=== PATIENT | female | born 1980 | race Two or more races ===

== ENCOUNTER 2021-03-16 19:37 | Emergency (ER) | payer OTHER ==
[~2021-03-16] VITALS: Ht 170.2 cm; Wt 65.8 kg
--- NOTE | 2021-03-16 19:50 | NUR ---
BIBS FOR C/O SOB X 5 DAYS . - COUGH. REC'D J&J VACCINE ON 02/11/21. - FEVER. PT AMBULATORY TO BED 2, PLACED ON A MONITOR, WILL CONT TO MONITOR
[2021-03-16] MEDS ORDERED: ALBUTEROL FS 2.5 MG/3 ML VIAL.NEB ONE (19:59)
[2021-03-16] MEDS ORDERED: IPRATROPIUM NEB FS 0.5 MG/2.5 ML AMPUL.NEB ONE (19:59)
[2021-03-16] MEDS ORDERED: predniSONE 20 MG TABLET PO ONE (20:00)
[2021-03-16] MEDS ORDERED: IPRATROPIUM NEB FS 0.5 MG/2.5 ML AMPUL.NEB NEB ONE (20:00)
[2021-03-16] MEDS ORDERED: ALBUTEROL FS 2.5 MG/3 ML VIAL.NEB NEB ONE (20:00)
--- NOTE | 2021-03-16 20:00 | NUR ---
RAD AT BED SIDE
[2021-03-16] MEDS ORDERED: predniSONE 20 MG TABLET ONE (20:09)
[2021-03-16 20:17] LABS: BASOPHILS % (AUTO) 0.6 % (0.0-2.0); EOSINOPHILS % (AUTO) 15.2 % (0.0-6.0); HEMATOCRIT 48 % (33-45); LYMPHOCYTES # (AUTO) 1.8 /CMM (0.8-4.8); LYMPHOCYTES % (AUTO) 25.7 % (20.0-44.0); MEAN CORPUSCULAR HGB CONC 33 g/dl (31.0-36.0); MEAN CORPUSCULAR VOLUME 88 fL (82-100); MONOCYTES # (AUTO) 0.4 /CMM (0.1-1.30); MONOCYTES % (AUTO) 5.8 % (2.0-12.0); NEUTROPHILS # (AUTO) 3.8 /CMM (1.8-8.9); NEUTROPHILS % (AUTO) 52.7 % (43.0-81.0); PLATELET COUNT (AUTO) 211 /CMM (150-450); RED BLOOD CELL COUNT(AUTO) 5.49 MIL/uL (4.0-5.2); WHITE BLOOD COUNT (AUTO) 7.1 K/uL (4.3-11.0)
[2021-03-16 20:30] LABS: CALCIUM, SERUM 9.7 mg/dL (8.5-10.1); CREATININE 0.8 mg/dL (0.6-1.3); POTASSIUM 3.5 mmol/L (3.5-5.1)
--- NOTE | 2021-03-16 20:36 | NUR ---
LAURY AT THE BED SIDE TTO RE EVALUATE THE PT POST BREATHING TX
[2021-03-16] MEDS ORDERED: IOHEXOL-350 100 ML VIAL IV ONE (21:17)
[2021-03-16] MEDS ORDERED: IV NS 0.9% 250 ML IV ONE (21:17)
[2021-03-16] MEDS ORDERED: CT SWABBABLE VALVE TRANS SET 1 EA INFUS.SET MC ONE (21:17)
--- NOTE | 2021-03-16 21:34 | NUR ---
BACK FROM CT
--- NOTE | 2021-03-16 22:19 | NUR ---
ALONSO ROBERTS AT BED SIDE
[2021-03-16] MEDS ORDERED: AZIT250T PO (22:28)
[2021-03-16] MEDS ORDERED: PRED20TA PO (22:28)
[2021-03-16] MEDS ORDERED: ALBU18HF2 INH (22:28)
[2021-03-16 22:45] VITALS: BP 77/127
--- NOTE | 2021-03-16 22:45 | NUR ---
PT is medically stable for d/c per MD. IV removed. Catheter intact and site benign. Pressure and 4x4 applied to site. No bleeding noted.Patient discharged to home in stable condition. Rx and Written and verbal after care instructions given. Patient verbalizes understanding of instruction.
== END 2021-03-16 22:46 | disposition home or self-care (01) ==
LOC: ER 19:41
DX: J20.9 Acute bronchitis, unspecified (principal); E86.0 Dehydration; R79.1 Abnormal coagulation profile; Z20.822 Contact with and (suspected) exposure to COVID-19; J98.11 Atelectasis
CPT/HCPCS: 36415; 71045; 71275; 80048; 84484; 84703; 85025; 85378; 87426; 93005; 94640 ×2; 99285; C9803; J7050; J7512; Q9967

== ENCOUNTER 2021-04-13 17:24 | Inpatient (IN) | payer OTHER ==
[~2021-04-13] VITALS: Ht 170.2 cm; Wt 69.9 kg
[~2021-04-13 17:24] MED LIST: ALBU18HF2 INH; AZIT250T PO; PRED20TA PO
--- NOTE | 2021-04-13 17:35 | NUR ---
The patient bibs for c/o sob x 3 days, 94% on room air. Episodes of dyspnea no exertion noted. Respiration regulara nd unlabored at this time. The patient states having non-productive cough. Denies pain. Attached to the monitor. Warm blanket provided for comfort. Will continue to monitor the patient.
--- NOTE | 2021-04-13 17:45 | NUR ---
89% in room air. the patient is placed on oxygen at 2l/min via nasal cannula and oxygen saturation improved to 95%. Dr Polanco made aware.
[2021-04-13] MEDS ORDERED: ALBUTEROL FS 2.5 MG/3 ML VIAL.NEB NEB ONE ×2 (18:00→20:30)
[2021-04-13] MEDS ORDERED: IPRATROPIUM NEB FS 0.5 MG/2.5 ML AMPUL.NEB NEB ONE ×2 (18:00→20:30)
[2021-04-13] MEDS ORDERED: methylPREDNISolone SOD SUCC 125 MG/2ML VIAL IV ONE (18:00)
[2021-04-13] MEDS ORDERED: methylPREDNISolone SOD SUCC 125 MG/2ML VIAL ONE (18:12)
[2021-04-13] MEDS ORDERED: IPRATROPIUM NEB FS 0.5 MG/2.5 ML AMPUL.NEB ONE ×2 (18:16→20:55)
[2021-04-13] MEDS ORDERED: ALBUTEROL FS 2.5 MG/3 ML VIAL.NEB ONE ×2 (18:16→20:54)
[2021-04-13] MEDS ORDERED: ALBU18HF2 IH (18:37)
[2021-04-13] MEDS ORDERED: BUPR1FIL3 SL (18:37)
--- NOTE | 2021-04-13 19:05 | NUR ---
Rec'd report from NEGRA Buckley for yahaira
--- NOTE | 2021-04-13 19:11 | NUR ---
covid swab done and sent to the lab
--- NOTE | 2021-04-13 19:21 | NUR ---
us at bedside
--- NOTE | 2021-04-13 19:32 | NUR ---
verbal order of 0.5mg ativan po
[2021-04-13 19:34] LABS: CALCIUM, SERUM 9.8 mg/dL (8.5-10.1); CARBON DIOXIDE 29 mmol/L (21-32); CHLORIDE 100 mmol/L (98-107); CREATININE 0.9 mg/dL (0.6-1.3); GLUCOSE 82 mg/dL (74-106); POTASSIUM 4.3 mmol/L (3.5-5.1); SODIUM SERUM 137 mmol/L (136-145); UREA NITROGEN, BLOOD 12 mg/dL (7-18)
[2021-04-13] MEDS ORDERED: LORAZEPAM 0.5 MG TABLET ONE (19:34)
[2021-04-13 19:46] LABS: BASOPHILS % (AUTO) 0.3 % (0.0-2.0); EOSINOPHILS % (AUTO) 4.2 % (0.0-6.0); HEMATOCRIT 48 % (33-45); LYMPHOCYTES # (AUTO) 0.9 /CMM (0.8-4.8); LYMPHOCYTES % (AUTO) 9.8 % (20.0-44.0); MEAN CORPUSCULAR HGB CONC 33 g/dl (31.0-36.0); MEAN CORPUSCULAR VOLUME 88 fL (82-100); MONOCYTES # (AUTO) 0.5 /CMM (0.1-1.30); MONOCYTES % (AUTO) 5.4 % (2.0-12.0); NEUTROPHILS # (AUTO) 7.4 /CMM (1.8-8.9); NEUTROPHILS % (AUTO) 80.3 % (43.0-81.0); PLATELET COUNT (AUTO) 268 /CMM (150-450); RED BLOOD CELL COUNT(AUTO) 5.48 MIL/uL (4.0-5.2); WHITE BLOOD COUNT (AUTO) 9.3 K/uL (4.3-11.0)
[2021-04-13 19:51] LABS: ALANINE AMINOTRANSFERASE 23 U/L (12-78); ALBUMIN 4.1 g/dL (3.4-5.0); ALKALINE PHOSPHATASE 106 U/L (46-116); ASPARTATE AMINOTRANSFERASE 26 U/L (15-37); BILIRUBIN,DIRECT 0.2 mg/dL (0.0-0.2); BILIRUBIN,TOTAL 0.6 mg/dL (0.2-1.0); NT-PRO BNP 203 pg/mL (0-125); TOTAL PROTEIN, SERUM 8.5 g/dL (6.4-8.2)
[2021-04-13] MEDS ORDERED: LORAZEPAM 0.5 MG TABLET PO ONE (20:00)
--- NOTE | 2021-04-13 20:21 | NUR ---
NURSING SUP CALLED FOR BED, 312-4
--- NOTE | 2021-04-13 20:23 | NUR ---
PANEL PAGED PER MD REQUEST
--- NOTE | 2021-04-13 20:25 | NUR ---
DR. KELLY SPEAKING WITH PRISCILLA NEWELL DNP REGARDING ADMISSION
--- NOTE | 2021-04-13 20:49 | NUR ---
callled rt for breathing tx
--- NOTE | 2021-04-13 20:57 | NUR ---
rt at bedside
--- NOTE | 2021-04-13 21:01 | NUR ---
Gave report to NEGRA Felix for yahaira
[2021-04-13 21:25] VITALS: BP 122/68
[2021-04-13 21:30] VITALS: BP 122/68
--- NOTE | 2021-04-13 21:30 | NUR ---
TELE/RN ADMITTING NOTE RECEIVED REPORT FROM REINFORCING STEEL WORKER WIRE MESH KRUPA. PATIENT ARRIVED TO UNIT VIA GURNEY AND 2 STAFF MEMBERS. PATIENT PLACED IN ROOM 312-1. PATIENT IS ALERT AND ORIENTED X 4. ABLE TO MAKE NEEDS KNOWN. NO COMPLAINTS OF PAIN AT THIS TIME. IV ACCESS TO LEFT AC #20G INTACT, PATENT AND SALINE LOCKED. PATIENT IS ON TELE MONITOR WITH READING OF SR 78. NO S/SX OF SOB OR RESPIRATORY DISTRESS NOTED. CONTINUES ON 3L O2 VIA NC WITH O2 SATS 96%. PATIENT IS AMBULATORY WITH STEADY GAIT. NO SKIN ISSUES ON ADMISSION. LUNG SOUNDS WITH SOME WHEEZING NOTED. PATIENT IS ON REGULAR DIET AND PROVIDED SANDWICH AND SNACKS. ALL NEEDS ATTENDED TO. CALL LIGHT WITHIN REACH. PATIENT ORIENTED TO ROOM, CALL LIGHT AND UNIT. ASPIRATION, FALL AND SAFETY PRECAUTIONS MAINTAINED. WILL CONTINUE TO MONITOR.
[2021-04-13] MEDS ORDERED: Z GUARD REMEDY 2 OZ OINT TP PRN (22:30)
[2021-04-13] MEDS ORDERED: ONDANSETRON HCL/PF 4 MG/2 ML VIAL IVP PRN (22:30)
[2021-04-13] MEDS ORDERED: ACETAMINOPHEN 325 MG TABLET PO PRN (22:30)
[2021-04-13] MEDS: IV NS 0.9% 1,000 ML IV PRN (22:53)
[2021-04-13] MEDS: ZOLPIDEM TARTRATE 5 MG TABLET PO PRN (22:54)
[2021-04-13] MEDS: ENOXAPARIN SODIUM 40 MG/0.4 ML DISP.SYRIN SQ SCH (22:56)
[2021-04-13] MEDS: ALBUTEROL FS 2.5 MG/3 ML VIAL.NEB NEB SCH (23:31)
[2021-04-13] MEDS: IPRATROPIUM NEB FS 0.5 MG/2.5 ML AMPUL.NEB NEB SCH (23:31)
[2021-04-14] VITALS: BP 115/69
[2021-04-14 04:00] VITALS: BP 116/69
[2021-04-14] MEDS: ALBUTEROL FS 2.5 MG/3 ML VIAL.NEB NEB SCH ×6 (04:06→23:30)
[2021-04-14] MEDS: IPRATROPIUM NEB FS 0.5 MG/2.5 ML AMPUL.NEB NEB SCH ×6 (04:06→23:30)
[2021-04-14] MEDS: methylPREDNISolone SOD SUCC 40 MG/ML VIAL IV SCH ×3 (04:25→21:50)
--- NOTE | 2021-04-14 06:40 | NUR ---
TELE/RN CLOSING NOTE PATIENT CURRENTLY RESTING IN BED. AWAKE, ALERT AND ORIENTED X 4. ABLE TO MAKE NEEDS KNOWN. NO COMPLAINTS OF PAIN AT THIS TIME. CONTINUES ON 3L O2 VIA NC WITH NO S/SX OF RESPIRATORY DISTRESS NOTED. O2 SATS BETWEEN 96-98%. CONTINUES ON IVF NS @ 75ML/HR. TELE MONITOR READING SR 75. CALL LIGHT WITHIN REACH. ASPIRATION, FALL AND SAFETY PRECAUTIONS MAINTAINED. WILL ENDORSE PLAN OF CARE TO ONCOMING SHIFT.
[2021-04-14 06:54] LABS: BASOPHILS % (AUTO) 0.1 % (0.0-2.0); HEMATOCRIT 46 % (33-45); HEMOGLOBIN 15.1 g/dL (11.5-14.8); LYMPHOCYTES # (AUTO) 0.4 /CMM (0.8-4.8); LYMPHOCYTES % (AUTO) 7.1 % (20.0-44.0); MEAN CORPUSCULAR HGB CONC 33 g/dl (31.0-36.0); MEAN CORPUSCULAR VOLUME 88 fL (82-100); MONOCYTES # (AUTO) 0.1 /CMM (0.1-1.30); NEUTROPHILS # (AUTO) 5.5 /CMM (1.8-8.9); NEUTROPHILS % (AUTO) 90.8 % (43.0-81.0); PLATELET COUNT (AUTO) 231 /CMM (150-450); WHITE BLOOD COUNT (AUTO) 6.1 K/uL (4.3-11.0)
[2021-04-14 07:37] LABS: ALBUMIN 3.5 g/dL (3.4-5.0); BILIRUBIN,TOTAL 0.5 mg/dL (0.2-1.0); CALCIUM, SERUM 9.3 mg/dL (8.5-10.1); CREATININE 0.7 mg/dL (0.6-1.3); PHOSPHORUS 3.2 mg/dL (2.5-4.9); POTASSIUM 4.6 mmol/L (3.5-5.1); TOTAL PROTEIN, SERUM 7.8 g/dL (6.4-8.2)
[2021-04-14 08:00] VITALS: BP 116/82
[2021-04-14] MEDS: PANTOPRAZOLE 40 MG TABLET.DR PO SCH (08:00)
--- NOTE | 2021-04-14 08:00 | NUR ---
MACHINE GROUP LEADER OPENING NOTES RECEIVED PATIENT AWAKE AND RESTING IN BED, PT SHOWS NO SIGNS OF SOB PATIENT IS STABLE ON NC 3 LPM PATIENT IS SINUS RHYTMN 76 RIGHT FOREARM . LAC G#20 NS @ 75 ML/HR. SAFETY MEASURES IN PLACE, CALL LIGHT AND TABLE WITHIN REACH, SIDE RAILS UP X 2, HOB ELEVATED, BED ALARM ON. WILL CONTINUE TO MONITOR. WILL CONTINUE
[2021-04-14 08:03] LABS: THYROID STIMULATING HORMONE 0.454 uIU/mL (0.358-3.74)
[2021-04-14 11:59] VITALS: BP 101/67
[2021-04-14] MEDS ORDERED: LORAZEPAM 0.5 MG TABLET PO ONE (12:30)
--- NOTE | 2021-04-14 15:55 | NUR ---
Absence Management Consultant note: public services librarian consult request received. SS will follow up at a later time.
[2021-04-14 16:00] VITALS: BP 110/74
--- NOTE | 2021-04-14 17:56 | NUR ---
ENVIRONMENTAL ENGINEERING INTERN CLOSING NOTES PT AWAKE IN BED AT THIS TIME. PT REMAINED STABLE THROUGHOUT SHIFT. PT KEPT CLEAN AND DRY.PT ENCOURAGED TO REPOSITION EVERY TWO HOURS. IV ACCESS LAC G#20 INTACT, PATENT AND FLUSHING WELL.SAFETY PRECAUTIONS IN PLACE AND MAINTAINED AT ALL TIMES. BED IN LOWEST LOCKED POSITION, HOB ELEVATED, SIDE RAILS UP X 2. CALL LIGHT AND TABLE WITHIN REACH. WILL ENDORSE TO ENTERPRISE RESOURCE ANALYST NURSE FOR MESFIN
--- NOTE | 2021-04-14 19:56 | NUR ---
MS/TELE/RN RECEIVED PATIENT IN ROOM LYING IN BED AWAKE, ALERT, ORIENTED, C/O COUGH AND SORE THROAT, OTHERWISE COMFORTABLE, NO SIGNS OF DISTRESS NOTED, CALL LIGHT IN REACH, WILL MONITOR.
[2021-04-14 20:00] VITALS: BP 113/67
--- NOTE | 2021-04-14 21:11 | NUR ---
MS/TELE/RN SENT MESSAGE TO DR. PRISCILLA NEWELL TO NOTIFY HIM OF PATIENT'S C/O WORSENING COUGH AND SORE THROAT, TO GET MEDICATION ORDER.
--- NOTE | 2021-04-14 21:17 | NUR ---
MS/TELE/RN RECEIVED ORDER OF CEPACOL FOR SORE THROAT, NO ORDER RECEIVED FOR COUGH. ORDER CARRIED OUT.
[2021-04-14] MEDS ORDERED: MENTHOL/CETYLPYRD (CEPACOL) 1 LOZ LOZENGE PO PRN (21:30)
[2021-04-14] MEDS: ENOXAPARIN SODIUM 40 MG/0.4 ML DISP.SYRIN SQ SCH (21:52)
[2021-04-14] MEDS: IV NS 0.9% 1,000 ML IV PRN (21:53)
--- NOTE | 2021-04-14 22:10 | NUR ---
MS/TELE/RN PER NURSE ATTENDING PSYCHIATRIST, OMAR CEPACOL IS NOT AVAILABLE IN THE NIGHT LOCKER. PATIENT MADE AWARE.
[2021-04-14] MEDS: ZOLPIDEM TARTRATE 5 MG TABLET PO PRN (22:14)
--- NOTE | 2021-04-14 23:16 | NUR ---
MS/TELE/RN PATIENT IS SLEEPING AT THIS TIME, APPEAR COMFORTABLE, BREATHING EVEN AND UNLABORED, CALL LIGHT IN REACH. WILL CONTINUE TO MONITOR.
[2021-04-15] VITALS: BP_SYST 53
--- NOTE | 2021-04-15 00:52 | NUR ---
MS/TELE/RN PER RT, PATIENT REFUSED THE BREATHING TREATMENT SCHEDULED AT 2330.
[2021-04-15] MEDS: ALBUTEROL FS 2.5 MG/3 ML VIAL.NEB NEB SCH ×4 (03:30→15:30)
[2021-04-15] MEDS: IPRATROPIUM NEB FS 0.5 MG/2.5 ML AMPUL.NEB NEB SCH ×4 (03:30→15:30)
[2021-04-15] MEDS: methylPREDNISolone SOD SUCC 40 MG/ML VIAL IV SCH ×2 (04:43→12:59)
--- NOTE | 2021-04-15 06:13 | NUR ---
MS/TELE/RN PATIENT IS AWAKE, COMFORTABLE, NO C/O PAIN, NO DISTRESS NOTED, NO CHANGE IN CLINICAL CONDITION, ALL NEEDS ATTENDED AT THIS TIME, WILL CONTINUE TO MONITOR.
[2021-04-15 06:44] LABS: HEMATOCRIT 47 % (33-45); HEMOGLOBIN 15.1 g/dL (11.5-14.8); LYMPHOCYTES # (AUTO) 0.6 /CMM (0.8-4.8); LYMPHOCYTES % (AUTO) 4.9 % (20.0-44.0); MEAN CORPUSCULAR HGB CONC 32 g/dl (31.0-36.0); MEAN CORPUSCULAR VOLUME 89 fL (82-100); MONOCYTES # (AUTO) 0.3 /CMM (0.1-1.30); MONOCYTES % (AUTO) 2.2 % (2.0-12.0); NEUTROPHILS # (AUTO) 11.2 /CMM (1.8-8.9); NEUTROPHILS % (AUTO) 92.9 % (43.0-81.0); PLATELET COUNT (AUTO) 253 /CMM (150-450); RED BLOOD CELL COUNT(AUTO) 5.25 MIL/uL (4.0-5.2)
--- NOTE | 2021-04-15 07:00 | NUR ---
MANAGEMENT TECH OPENING NOTES RECEIVED PT AWAKE IN BED AT THIS TIME. PT AOX4. ABLE TO VERBALIZE NEEDS. NO SOB NOTED, NO C//O OF PAIN AT THIS TIME, NO S/S OF ANY APPARENT DISTRESS NOTED.RESPIRATIONS EVEN AND UNLABORED, PT NOTED ON 2LPM OXYGEN VIA NC. IV ACCESS NOTED IN LAC G#20, INTACT PATENT AND FLUSHING WELL. ASPIRATION AND SAFETY PRECAUTIONS IN PLACE AND MAINTAINED AT ALL TIMES. BED IN LOWEST LOCKED POSITION, SIDE RAILS UPX2, TABLE AND CALL LIGHT WITHIN REACH. WILL CONTINUE TO MONITOR
[2021-04-15 07:06] LABS: CALCIUM, SERUM 8.8 mg/dL (8.5-10.1); CREATININE 0.8 mg/dL (0.6-1.3); MAGNESIUM 1.9 mg/dL (1.8-2.4); PHOSPHORUS 3.5 mg/dL (2.5-4.9); POTASSIUM 4.3 mmol/L (3.5-5.1)
[2021-04-15 08:00] VITALS: BP 113/71
[2021-04-15] MEDS: PANTOPRAZOLE 40 MG TABLET.DR PO SCH (08:23)
[2021-04-15 12:43] VITALS: BP 104/67
[2021-04-15] MEDS: IV NS 0.9% 1,000 ML IV PRN (13:00)
[2021-04-15] MEDS ORDERED: FLUT1BLS IH (13:49)
[2021-04-15] MEDS ORDERED: METH4TAB3 PO (13:49)
[2021-04-15 16:00] VITALS: BP 97/60
--- NOTE | 2021-04-15 16:47 | NUR ---
BANQUET DIRECTOR NOTED PT DISCHARGE HOME AT THIS TIME. PT MEDICALLY STABLE AND CLEARED FOR DISCHARGE BY DR LOPES. ALL DISCHARGE INSTRUCTIONS PROVIDED. PT VERBALIZED UNDERSTANDING. PT KEPT CLEAN AND DRY. ALL BELONGINGS ACCOUNTED FOR, SIGNED BY PT AND SEND WITH PT. IV ACCESS REMOVED, PRESSURE APPLIED, SECURED WITH GAUZE AND TAPE, NO S/O BLEEDING OR INFILTRATION NOTED. PT LEFT UNIT IN STABLE CONDITION, TRANSPORTED BY WHEELCHAIR TO [facility] BY [facility]ENG. PT PICKED UP BY HUSBAND. STEVEN, CHARGE NURSE AND DR LOPES AWARE.
--- NOTE | 2021-04-16 12:09 | NUR ---
SS Note: SW attempted to meet with pt. However, pt. has already departed.
== END 2021-04-15 16:50 | disposition home or self-care (01) | DRG 189 ==
LOC: ER 17:26 → TELE 20:23
PROVIDERS: ADMIT Nurse Practitioner Acute Care; ATTEND Student in an Organized Health Care Education/Training Program
DX: J96.01 Acute respiratory failure with hypoxia (principal); J45.901 Unspecified asthma with (acute) exacerbation; F11.10 Opioid abuse, uncomplicated; Z79.51 Long term (current) use of inhaled steroids; Z79.899 Other long term (current) drug therapy; Z87.891 Personal history of nicotine dependence; F12.90 Cannabis use, unspecified, uncomplicated
CPT/HCPCS: 36415; 70220-TC; 71045-TC; 80048-TC; 80053-TC; 80061-TC; 80076-TC; 83735-TC; 83880; 84100-TC; 84443-TC; 84484-TC; 84703-TC; 85025-TC; 85378-TC; 87081-TC; 93307-TC; 93970-TC; 94799-TC; C9803; G0378; J1650; J2920; J2930; J7030